=== PATIENT | male | born 1975 | race Two or more races ===

== ENCOUNTER 2023-01-30 08:17 | Emergency (ER) | payer OTHER ==
[2023-01-30 08:26] VITALS: BP 114/72; PULSE 64; RESP 18; TEMP 98.1; BMI 28.1
[2023-01-30] MEDS ORDERED: ACETAMINOPHEN 500 MG TABLET (FP) PO ONE (09:14)
[2023-01-30] MEDS ORDERED: ACETAMINOPHEN 500 MG TABLET (FP) ONE (09:32)
== END 2023-01-30 11:24 | disposition home or self-care (01) ==
LOC: JER 08:17 → JERFT 08:17
DX: R60.0 Localized edema (principal); M79.672 Pain in left foot; M25.562 Pain in left knee; M79.662 Pain in left lower leg
CPT/HCPCS: 93971-TC; 99284-25